=== PATIENT | male | born 1980 | race Caucasian/White ===

== ENCOUNTER 2017-03-15 07:39 | Day surgery (SDC) | payer OTHER ==
[~2017-03-15 07:39] MED LIST: ACETAMINOPHEN 1,000 MG/100 ML BTL IV ONE
[2017-03-15] MEDS ORDERED: PROPOFOL 10 MG/ML VIAL IV ONE (07:40)
[2017-03-15] MEDS ORDERED: ONDANSETRON HCL IV 4 MG/2 ML VIAL IVP ONE (07:40)
[2017-03-15] MEDS ORDERED: KETOROLAC 30 MG/ML VIAL IVP ONE (07:40)
[2017-03-15] MEDS ORDERED: BUPIVACAINE 0.25% W/EPI MPF 30ML VIAL IVP ONE (07:40)
[2017-03-15] MEDS ORDERED: HYDROMORPHONE HCL 2 MG/ML VIAL IV ONE (07:40)
[2017-03-15] MEDS ORDERED: PROMETHAZINE HCL 25 MG/ML VIAL IVP ONE (07:40)
[2017-03-15] MEDS ORDERED: SEVOFLURANE 250 ML INH ONE (07:40)
[2017-03-15] MEDS ORDERED: LIDOCAINE 2% MDV (20MG/ML) 20ML VIAL SQ ONE (07:40)
--- NOTE | 2017-03-16 10:21 | Operative Note ---
DATE OF SURGERY: 03/15/2017 Surgeon: J Luis Gracia DO PREOPERATIVE DIAGNOSIS: Chondromalacia of the right knee. POSTOPERATIVE DIAGNOSIS: Chondromalacia of the medial femoral condyle and patella right knee. OPERATION: Arthroscopic chondroplasty of medial femoral condyle and patella, right knee. DESCRIPTION OF PROCEDURE: This is a 36-year-old male who was taken to the operating room and placed in the supine position on the operating room table. General anesthesia was induced and the right lower extremity was elevated. It was exsanguinated and the tourniquet inflated to 300 mmHg. Arthroscopic knee welch applied. The right knee prepped with Hibiclens and draped in the usual sterile fashion. An inferolateral portal was established for the 4 mm arthroscope. Initial evaluation of the joint demonstrated normal appearance of the suprapatellar pouch but the median ridge and medial facet of the patella demonstrated grade 3 changes. The lateral facet demonstrated more normal appearance. The trochlea, however, appeared to be normal. A chondroplasty of the patella was performed to stabilize the loose fragments of articular cartilage which were present there. The medial and lateral gutters were examined and found to be normal. The medial compartment was entered and grade 2 chondromalacia of the entire weightbearing surface of the medial femoral condyle was present. The farther anterior we got, the more degenerative change was seen. It went all the way up to the meniscal rest and utilizing the rotating shaver, we resected unstable flaps of meniscal tissue. I did not see any full-thickness defects but significant grade 2 changes were present. The medial meniscus was probed and found to be normal. The intracondylar notch was examined and found to be normal. The lateral compartment was entered and probing of the lateral articular cartilage and lateral meniscus did not reveal any pathology. The joint was copiously irrigated and suctioned. The instruments were removed. The portals infiltrated with 0.25% Marcaine with epinephrine. Sterile dressings applied. Tourniquet and knee welch released and the patient taken to the recovery room in satisfactory condition. GROSS PATHOLOGY: This patient demonstrated grade 3 chondromalacia of the medial facet of the patella and the median ridge and grade 2 chondromalacia over the entire weightbearing surface of the medial femoral condyle. CC: Dr. Cisco MALDONADO
== END 2017-03-15 12:34 | disposition home or self-care (01) ==
LOC: SUR 07:39
PROVIDERS: ATTEND Orthopaedic Surgery
DX: M22.41 Chondromalacia patellae, right knee (principal); E11.9 Type 2 diabetes mellitus without complications; Z79.84 Long term (current) use of oral hypoglycemic drugs; E78.00 Pure hypercholesterolemia, unspecified
CPT/HCPCS: 29877; 01400; J1885; J2405; J1170; J2550

== ENCOUNTER 2018-01-11 21:00 | Emergency (ER) | payer OTHER ==
[2018-01-11] MEDS ORDERED: PROPARACAINE HCL OPTH 15ML BTL OPTH ONE (21:07)
[2018-01-11] MEDS ORDERED: GENTAMICIN SULFATE 0.3% OPTH 5 ML BTL OPTH ONE (21:27)
--- NOTE | 2018-01-11 21:28 | Emergency Department Record ---
History of Present Illness - General Chief complaint: Eye Problem Stated complaint: FOREIGN OBJECT RT EYE Time Seen by Provider: 01/11/18 21:07 Source: Patient Mode of Arrival: Ambulatory Limitations: No limitations - History of Present Illness Initial comments: 37 yo male presents to ED for evaluation of right eye pain and possible FB that fell into the eye while lifting a garage door 2 hours prior to arrival. Patient denies change in vision, but reports pain and tearing sensation. Patient denies other injury on examination. chief complaint: Eye pain, Foreign body Onset/Timin -: Hour(s) Onset Description: Sudden Location: Right eye Place: Home If Injury: None Eye Symptoms: Burning, Foreign body sensation, Itching, Pain Severity: Mild If Pain, Quality: Aching, Burning, Sharp Consistency: Constant Context: Injury Associated Symptoms: None Treatments Prior to Arrival: None - Related Data Visual acuity (L) = 20/: 20 Visual acuity (R) = 20/: 20 Home Medications Medication Instructions Recorded Confirmed Last Taken Sitagliptin Phos/Metformin HCl 1 tab PO DAILY 01/11/18 01/11/18 Unknown [Janumet 50-500 mg Tablet] Allergies Allergy/AdvReac Type Severity Reaction Status Date / Time No Known Drug Allergies Allergy Verified 01/11/18 21:11 Travel Screening - Travel/Exposure Within Last 30 Days Have you traveled within the last 30 days?: No - Travel/Exposure Within Last Year Have you traveled outside the [place] in the last year?: No - Additonal Travel Details Have you been exposed to anyone with a communicable illness?: No - Travel Symptoms Symptom Screening: None Review of Systems Constitutional: Denies: Chills, Fever, Malaise, Night sweats Eyes: Reports: Eye pain, Photophobia. Denies: Eye discharge, Vision change ENT: Denies: Congestion, Ear pain, Epistaxis Respiratory: Denies: Cough, Dyspnea Cardiovascular: Denies: Chest pain, Dyspnea on exertion Endocrine: Denies: Fatigue, Heat or cold intolerance Gastrointestinal: Denies: Abdominal pain, Nausea, Vomiting Genitourinary: Denies: Incontinence, Retention Musculoskeletal: Denies: Arthralgia, Back pain, Gout, Joint swelling Skin: Denies: Bruising, Change in color Neurological: Denies: Abnormal gait, Confusion, Headache, Seizure Psychiatric: Denies: Anxiety Hematological/Lymphatic: Denies: Anemia, Blood Clots Past Medical History - SOCIAL HISTORY Smoking Status: Never smoker Alcohol Use: Rare Drug Use: None - RESPIRATORY Hx Respiratory Disorders: Yes Hx Bronchitis: Yes Comment:: ? 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; - PSYCH Hx Psych Problems: No - HEMATOLOGY/ONCOLOGY Hx Hematology/Oncology Disorders: No Family Medical History Any Significant Family History?: No Hx Diabetes: Grandparents *Diabetes Comment: aunt Hx Heart Disease: Grandparents Hx HTN: Grandparents Hx Stroke: Grandparents Physical Exam - General General Appearance: Alert, Oriented x3, Cooperative, Moderate distress Limitations: No limitations - Head Head exam: Atraumatic, Normocephalic, Normal inspection Head exam detail: negative: Abrasion, Contusion, Granados's sign, General tenderness, Hematoma, Laceration - Eye Eye exam: Conjunctival injection. negative: Periorbital swelling, Periorbital tenderness, Scleral icterus - ENT Ear exam: negative: Auricular hematoma, Auricular trauma Nasal Exam: negative: Active bleeding, Discharge, Dried blood, Foreign body Mouth exam: negative: Drooling, Laceration, Muffled voice, Tongue elevation - Neck Neck exam: Normal inspection. negative: Meningismus, Tenderness - Respiratory Respiratory exam: Normal lung sounds bilaterally. negative: Rales, Respiratory distress, Rhonchi, Stridor - Cardiovascular Cardiovascular Exam: Regular rate, Normal rhythm, Normal heart sounds - GI/Abdominal GI/Abdominal exam: Soft. negative: Rebound, Rigid, Tenderness - Rectal Rectal exam: Deferred - exam: Deferred - Extremities Extremities exam: Normal inspection. negative: Calf tenderness, Pedal edema, Tenderness - Back Back exam: Denies: CVA tenderness (R), CVA tenderness (L) - Neurological Neurological exam: Alert, Normal gait, Oriented X3 - Psychiatric Psychiatric exam: Normal affect, Normal mood - Skin Skin exam: Normal color. negative: Abrasion Type of lesion: negative: abrasion Course Vital Signs 01/11/18 21:13 Temperature 97.6 F Pulse Rate 70 Respiratory 18 Rate Blood Pressure 130/87 Pulse Ox 99 - Reevaluation(s) Reevaluation #1: 01/11/18 22:02 Alcaine drops were placed in the right eye Flourescein staining was performed right eye, no abrasion identified Eversion of the lower lid normal, upper lid demonstrates a small FB laterally removed with moist q-tip. Re-evaluation and eversion of the upper lid fails to demonstrate another FB. Will discharge home on Gentamicin drops with instructions to follow-up with Dr. Smith Sunday as directed. Patient agrees with the plan of care as discussed. Disposition Disposition: Discharge Clinical Impression: Corneal foreign body Qualifiers: Encounter type: initial encounter Laterality: right Qualified Code(s): T15.01XA - Foreign body in cornea, right eye, initial encounter Disposition: Home, Self-Care Condition: (2) Stable Instructions: Eye Foreign Body (ED) Additional Instructions: Return to ED if your symptoms worsen or if you have any concerns. Gentamycin as directed. Follow-up with Dr. Smith Sunday as directed. Referrals: HELLEN SMITH [MEDICAL DOCTOR] - Forms: Patient Portal Access Time of Disposition: 21:28 Quality - Quality Measures Quality Measures: N/A - Blood Pressure Screening Does Patient Have Any of the Following: No Blood Pressure Classification: Hypertensive Reading Systolic Measurement: 124 Diastolic Measurement: 94 Screening for High Blood Pressure: < First Hypertensive BP, F/U Documented > [ [id number]] First Hypertensive Follow-up Interventions: Referral to alternative/primary care provider.
== END 2018-01-11 21:53 | disposition home or self-care (01) ==
LOC: ER 21:00
DX: T15.01XA Foreign body in cornea, right eye, initial encounter (principal); Y92.008 Other place in unspecified non-institutional (private) residence as the place of occurrence of the external cause
CPT/HCPCS: 65205; 99282; 99283